=== PATIENT | female | born 1970 | race Caucasian/White ===

== ENCOUNTER 2020-03-13 13:28 | Emergency (ER) | payer OTHER ==
[~2020-03-13] VITALS: Ht 167.6 cm; Wt 66.2 kg
[2020-03-13] MEDS ORDERED: TIROSINT75 MCG PO (13:58)
== END 2020-03-13 16:32 | disposition home or self-care (01) ==
LOC: ER 13:28
DX: R42 Dizziness and giddiness (principal); B96.0 Mycoplasma pneumoniae [M. pneumoniae] as the cause of diseases classified elsewhere; Z03.818 Encounter for observation for suspected exposure to other biological agents ruled out

== ENCOUNTER 2020-05-13 01:35 | Emergency (ER) | payer OTHER ==
[~2020-05-13] VITALS: Ht 167.6 cm; Wt 65.8 kg
[~2020-05-13 01:35] MED LIST: TIROSINT75 MCG PO
[2020-05-13] MEDS ORDERED: KEFLEX500 MG PO ×3 (04:20→04:21)
[2020-05-13] MEDS ORDERED: NIFEDIPINE ER30 M1 PO ×3 (04:21)
== END 2020-05-13 04:40 | disposition home or self-care (01) ==
LOC: ER 01:35
DX: I16.0 Hypertensive urgency (principal)

== ENCOUNTER 2020-05-15 10:52 | Emergency (ER) | payer OTHER ==
[~2020-05-15] VITALS: Ht 167.6 cm; Wt 65.8 kg
[~2020-05-15 10:52] MED LIST changes: +KEFLEX500 MG PO; +NIFEDIPINE ER30 M1 PO
== END 2020-05-15 13:22 | disposition home or self-care (01) ==
LOC: ER 10:52
DX: N39.0 Urinary tract infection, site not specified (principal)

== ENCOUNTER 2020-06-11 16:07 | Emergency (ER) | payer OTHER ==
[~2020-06-11] VITALS: Ht 167.6 cm; Wt 66.2 kg
[2020-06-11] MEDS ORDERED: PROCARDIA 30 MG (16:31)
== END 2020-06-11 18:59 | disposition home or self-care (01) ==
LOC: ER 16:07
DX: R42 Dizziness and giddiness (principal); Z76.5 Malingerer [conscious simulation]